=== PATIENT | female | born 1970 | race Caucasian/White ===

== ENCOUNTER 2017-07-17 10:38 | Emergency (ER) | payer OTHER ==
[2017-07-17 10:51] VITALS: BP 134/86; PULSE 88; RESP 18; TEMP 98.1; O2SAT 99
--- NOTE | 2017-07-17 12:02 | C.PDOC ---
History Of Present Illness 47 y/o healthy female c/o cough with yellow sputum x 4 weeks, occasional pleuritic pain when coughing, itchy eyes, sneezing. no fever now, subjective temp last week. no sob. pt sts cough worse during night and in the mornings. non -smoker. Time Seen by Provider: 07/17/17 11:49 Chief Complaint (Nursing): Cough, Cold, Congestion History/Exam Limitations: no limitations Onset/Duration Of Symptoms: Days Current Symptoms Are (Timing): Still Present Past Medical History Reviewed: Historical Data, Nursing Documentation, Vital Signs Vital Signs: Last Vital Signs Temp 98.1 F 07/17/17 10:50 Pulse 88 07/17/17 10:50 Resp 18 07/17/17 10:50 BP 134/86 07/17/17 10:50 Pulse Ox 99 07/17/17 12:29 Surgical History: No Surg Hx Family History: States: No Known Family Hx - Social History Hx Alcohol Use: No Hx Substance Use: No - Immunization History Hx Tetanus Toxoid Vaccination: No Hx Influenza Vaccination: No Hx Pneumococcal Vaccination: No Review Of Systems Constitutional: Negative for: Fever Eyes: Positive for: Other (itchiness ). Negative for: Vision Change, Redness ENT: Negative for: Ear Pain Cardiovascular: Positive for: Chest Pain (when coughing ). Negative for: Palpitations Respiratory: Positive for: Cough. Negative for: Shortness of Breath Gastrointestinal: Negative for: Nausea, Vomiting, Diarrhea Skin: Negative for: Rash Physical Exam - Physical Exam Appears: Non-toxic, No Acute Distress Skin: Warm, Dry Head: Atraumatic, Normacephalic Eye(s): bilateral: PERRL, EOMI Oral Mucosa: Moist Throat: Normal Neck: Supple Chest: Symmetrical Cardiovascular: Rhythm Regular Respiratory: Normal Breath Sounds, No Rales, No Rhonchi, No Wheezing Gastrointestinal/Abdominal: Soft, No Tenderness, No Guarding, No Rebound Extremity: Normal ROM, Capillary Refill (<2sec.) Neurological/Psych: Oriented x3, Normal Speech, Normal Cognition Gait: Steady ED Course And Treatment O2 Sat by Pulse Oximetry: 99 (RA) Progress Note: The patient is resting comfortably. The patient is afebrile and is PO tolerant. The patient is advised to have a follow up with PMD for further evaluation. Medical Decision Making Medical Decision Making: pt with uri/allergy type symptoms, cough likely from post nasal drip, will start on claritin, wiht pmd f/u next week, Disposition Counseled Patient/Family Regarding: Diagnosis, Need For Followup, Rx Given - Disposition Referrals: [facility] [Outside] Disposition: HOME/ ROUTINE Disposition Time: 12:02 Condition: STABLE Additional Instructions: [place] Claritin segn lo prescrito. Elliott debera ayudar con el goteo nasal y la tos. [place]ine con dale mdico o en la clnica mdica la prxima semana. Regrese a urgencias por cualquier peor sntoma. Prescriptions: Loratadine 10 mg PO DAILY #30 tablet Instructions: Allergies (ED) Forms: [employer] (Moldovan), Gen Discharge Inst Guatemalan, [employer] (Guatemalan) Print Language: BULGARIAN - Clinical Impression Clinical Impression: Cough, Seasonal allergies - PA / GLOVE FORMER / Resident Statement MD/DO has reviewed & agrees with the documentation as recorded. MD/DO has examined the patient and agrees with the treatment plan. - Scribe Statement The provider has reviewed the documentation as recorded by the Scribfreddy Burciaga All medical record entries made by the Meg were at my direction and personally dictated by me. I have reviewed the chart and agree that the record accurately reflects my personal performance of the history, physical exam, medical decision making, and the department course for this patient. I have also personally directed, reviewed, and agree with the discharge instructions and disposition.
== END 2017-07-17 12:15 | disposition home or self-care (01) ==
LOC: C.ER 10:38
DX: R05 Cough (principal); J30.2 Other seasonal allergic rhinitis

== ENCOUNTER 2018-03-24 20:26 | Emergency (ER) | payer OTHER ==
[2018-03-24 20:52] VITALS: PULSE 90; RESP 20
[2018-03-24 21:19] LABS: SQUAMOUS EPITHIAL 9 /hpf (0-5); URINE BACTERIA FEW (<OCC); URINE BILIRUBIN NEGATIVE (NEGATIVE); URINE BLOOD 3+ (NEGATIVE); URINE CLARITY Hazy (Clear); URINE COLOR Yellow (YELLOW); URINE GLUCOSE (UA) NORMAL (Normal); URINE LEUKOCYTE ESTERASE 2+ Leu/uL (Negative); URINE PROTEIN 2+ mg/dL (NEGATIVE); URINE UROBILINOGEN NORMAL mg/dL (0.2-1.0)
--- NOTE | 2018-03-24 21:44 | C.PDOC ---
History Of Present Illness 47 y/o female c/o lower abdominal pressure, dysuria, frequency and urgency for last 3-4 days, with occasional spots of blood, with no back pain. fever, chills , nausea or vomiting. denies vaginal bleeding or discharge. lmp march 14. Time Seen by Provider: 03/24/18 20:57 Chief Complaint (Nursing): Female Genitourinary History/Exam Limitations: no limitations Onset/Duration Of Symptoms: Days (4) Current Symptoms Are (Timing): Worse Severity: Moderate Quality Of Discomfort: Pressure, "Pain" Associated Symptoms: Urinary Symptoms. denies: Fever, Chills, Nausea, Vomiting Past Medical History Reviewed: Historical Data, Nursing Documentation, Vital Signs Vital Signs: Last Vital Signs Temp 98.5 F 03/24/18 20:49 Pulse 90 03/24/18 20:49 Resp 20 03/24/18 20:49 BP 152/90 H 03/24/18 20:49 Pulse Ox 99 03/24/18 21:46 - Medical History PMH: No Chronic Diseases Family History: States: Unknown Family Hx - Social History Hx Alcohol Use: No Hx Substance Use: No - Immunization History Hx Tetanus Toxoid Vaccination: No Hx Influenza Vaccination: No Hx Pneumococcal Vaccination: No Review Of Systems Constitutional: Negative for: Fever, Chills Cardiovascular: Negative for: Chest Pain Respiratory: Negative for: Cough Gastrointestinal: Positive for: Abdominal Pain. Negative for: Nausea, Vomiting , Diarrhea Genitourinary: Positive for: Dysuria, Frequency, Hematuria. Negative for: Vaginal Discharge, Vaginal Bleeding Neurological: Negative for: Weakness, Numbness Physical Exam - Physical Exam Appears: Non-toxic, No Acute Distress Skin: Normal Color, Dry Head: Atraumatic, Normacephalic Cardiovascular: Rhythm Regular, No Murmur Respiratory: No Decreased Breath Sounds, No Wheezing Gastrointestinal/Abdominal: Bowel Sounds, Soft, Tenderness (suprapubic and mild right pelvic tenderness), No Distention, No Guarding, No Rebound Back: CVA Tenderness (mild right) Neurological/Psych: Oriented x3, Normal Speech, Normal Cognition ED Course And Treatment O2 Sat by Pulse Oximetry: 99 Medical Decision Making Medical Decision Making: pt with urinary symptoms x 4 days with low ab pressure- ua uc upreg. 2145 pt not preg. ua with lg blood, +2 le, 32 wbc, , will tx forcystitis. 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 [place] antibiticos hasta que se complete. Veronika un seguimiento con dale gineclogo en los prximos rowe o en [facility] damian mdica. Regrese a la tiffany de emergencias por cualquier sntoma peor. Drink increased fluids such as water or cranberry juice. Take antibiotcs until completed. 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 Return to ER for any worse symptoms. Prescriptions: Ciprofloxacin [Cipro] 500 mg PO BID #14 tab Instructions: Acute Cystitis (DC) Forms: Gen Discharge Inst Gabonese, [employer] [facility] (Gabonese) - Clinical Impression Clinical Impression: Cystitis
[2018-03-24 22:17] VITALS: BP 145/90; TEMP 98.4
[2018-03-24 23:04] VITALS: O2SAT 99
== END 2018-03-24 22:27 | disposition home or self-care (01) ==
LOC: C.ER 20:26
DX: N30.90 Cystitis, unspecified without hematuria (principal)

== ENCOUNTER 2018-11-30 08:38 | Outpatient (CLI) | payer OTHER | END 2018-11-30 08:39 | disposition home or self-care (01) | LOC: C.LAB 08:38 | DX: E78.00 Pure hypercholesterolemia, unspecified (principal) ==

== ENCOUNTER 2019-01-30 08:45 | Outpatient (CLI) | payer OTHER | END 2019-01-30 08:46 | disposition home or self-care (01) | LOC: C.LAB 08:45 | DX: E78.00 Pure hypercholesterolemia, unspecified (principal) ==